=== PATIENT | male | born 1980 | race Caucasian/White ===

== ENCOUNTER 2020-10-10 23:40 | Emergency (ER) | payer OTHER ==
[~2020-10-10 23:40] MED LIST: ESCITALOPRAM OX20 MG PO; LEVOTHYROXINE25 MCG PO; QUETIAPINE FUM400 M1 PO; ROSUVASTATIN CA40 MG PO
[2020-10-11 00:04] LABS: BASOPHIL 0.4 % (0-2); EOSINOPHIL 1.2 % (0-5); HCT 42.2 % (42.0-52.0); HGB 15.4 g/dl (13.2-18.0); LYMPHOCYTE 16.5 % (15-48); MCH 31.5 pg (25.0-31.0); MCHC 36.5 g/dL (32.0-36.0); MCV 86.3 fL (78.0-100.0); MONOCYTE 6.8 % (0-12); MPV 11.7 fL (6.0-9.5); NEUTROPHIL 74.6 % (41-80); NRBC 0; PLT 228 K/uL (150-400); RBC 4.89 M/uL (4.70-6.00); RDW 12.4 % (11.5-14.0); WBC 13.3 K/uL (4.0-10.5)
[2020-10-11 00:09] LABS: BARBITURATES NEGATIVE (NEGATIVE); ECSTASY (MDMA) NEGATIVE (NEGATIVE); MARIJUANA (THC) NEGATIVE (NEGATIVE); METHADONE NEGATIVE (NEGATIVE); OPIATES NEGATIVE (NEGATIVE)
[2020-10-11 00:10] LABS: AMPHETAMINES NEGATIVE (NEGATIVE); OXYCODONE NEGATIVE (NEGATIVE)
[2020-10-11 00:17] LABS: INR 1.05 (0.9-1.2)
[2020-10-11 00:18] LABS: PTT 29.6 SECONDS (22.2-34.7)
[2020-10-11 00:19] LABS: D-DIMER 0.27 ug/mLFEU (0.00-0.41)
[2020-10-11 00:23] LABS: ALBUMIN 4.2 g/dL (3.4-5.0); BILIRUBIN - TOTAL 1.3 mg/dL (0.2-1.0); BUN/CREAT RATIO (CALC) 9.2 RATIO; CREATININE 0.87 mg/dL (0.67-1.17); GLOBULIN (CALCULATION) 3.2 g/dL; POTASSIUM 3.2 mmol/L (3.5-5.1); TOTAL PROTEIN 7.4 g/dL (6.4-8.2)
== END 2020-10-11 03:16 | disposition home or self-care (01) ==
LOC: FER 23:40
PROVIDERS: Emergency Medicine Emergency Medical Services
DX: R07.89 Other chest pain (principal); F15.129 Other stimulant abuse with intoxication, unspecified; R06.02 Shortness of breath; F17.210 Nicotine dependence, cigarettes, uncomplicated; Z88.8 Allergy status to other drugs, medicaments and biological substances
CPT/HCPCS: 36415; 71045; 80053; 80305; 84484; 85025; 85379; 85610; 85730; 93005; J2060; J2270; J2405

== ENCOUNTER 2021-03-21 18:55 | Emergency (ER) | payer OTHER ==
[2021-03-21] MEDS ORDERED: CYCLOBENZAPRINE10 MG PO (20:30)
== END 2021-03-21 20:45 | disposition home or self-care (01) ==
LOC: FER 18:55
DX: M25.512 Pain in left shoulder (principal); M54.2 Cervicalgia; M54.9 Dorsalgia, unspecified; G89.29 Other chronic pain; F17.210 Nicotine dependence, cigarettes, uncomplicated
CPT/HCPCS: 96372; 99283; J1100; J1885

== ENCOUNTER 2021-09-16 20:17 | Emergency (ER) | payer OTHER ==
[~2021-09-16 20:17] MED LIST changes: +CYCLOBENZAPRINE10 MG PO
[2021-09-16 22:18] LABS: BASOPHIL 0.5 % (0-2); EOSINOPHIL 3.7 % (0-5); HCT 44.6 % (42.0-52.0); HGB 15.7 g/dl (13.2-18.0); LYMPHOCYTE 22.6 % (15-48); MCHC 35.2 g/dL (32.0-36.0); MCV 85.1 fL (78.0-100.0); MONOCYTE 5.6 % (0-12); MPV 11.4 fL (6.0-9.5); NEUTROPHIL 67.2 % (41-80); NRBC 0; PLT 168 K/uL (150-400); RBC 5.24 M/uL (4.70-6.00); RDW 12.2 % (11.5-14.0); WBC 13.1 K/uL (4.0-10.5)
[2021-09-16 22:40] LABS: ALBUMIN 4.1 g/dL (3.4-5.0); BILIRUBIN - TOTAL 0.4 mg/dL (0.2-1.0); BUN/CREAT RATIO (CALC) 15.2 RATIO; CREATININE 0.99 mg/dL (0.67-1.17); GLOBULIN (CALCULATION) 2.9 g/dL; POTASSIUM 4.1 mmol/L (3.5-5.1)
== END 2021-09-16 23:55 | disposition home or self-care (01) ==
LOC: FER 20:17
PROVIDERS: Emergency Medicine
DX: K40.90 Unilateral inguinal hernia, without obstruction or gangrene, not specified as recurrent (principal); F17.210 Nicotine dependence, cigarettes, uncomplicated; Z20.822 Contact with and (suspected) exposure to COVID-19
CPT/HCPCS: 36415; 76870; 80053; 85025; J1885; J2405; Q9967; U0002

== ENCOUNTER → 2021-10-12 | Day surgery (SDC) | payer OTHER ==
[~2021-10-12] VITALS: Ht 182.9 cm; Wt 101.6 kg
[~2021-10-12] MED LIST changes: +ACETAMINOPHEN500 M1 PO; +ATARAX25 MG PO; +COLACE100 MG PO; +GABAPENTIN300 MG PO; +MOTRIN600 MG PO; +OXY-IR 5MG5 MG PO
== END | disposition home or self-care (01) ==
LOC: FAS 07:30
DX: K40.30 Unilateral inguinal hernia, with obstruction, without gangrene, not specified as recurrent (principal); K66.0 Peritoneal adhesions (postprocedural) (postinfection); E78.00 Pure hypercholesterolemia, unspecified; E03.9 Hypothyroidism, unspecified; F17.200 Nicotine dependence, unspecified, uncomplicated; Z72.89 Other problems related to lifestyle
CPT/HCPCS: J0690; J1100; J1170; J1644; J1885; J2250; J2405; J2704; J3010; J7120